=== PATIENT | female | born 1945 | race Caucasian/White ===

== ENCOUNTER 2017-02-04 15:20 | Inpatient (IN) | payer OTHER ==
[~2017-02-04] VITALS: Ht 162.6 cm; Wt 77.1 kg
--- NOTE | ~2017-02-04 | OP ---
Record Of Operation [facility] [address] [place]. [address] NAME: LEEANNA HUITRON : 47 STATUS : ADM IN [facility]#: [id number] AGE: 71 ADM/REG DATE : 02/04/17 MR#: [id number] REPORT SERV DATE: 02/06/17 DICTATED BY: LAKSHMI RAMIREZ DATE: 02/06/17 REPORT STATUS : Draft TRANSCRIBED BY: MODL DATE: 02/06/17 DATE OF PROCEDURE: 02/05/2017 PREOPERATIVE DIAGNOSIS: Left femoral neck fracture per MRI. POSTOPERATIVE DIAGNOSIS: Left femoral neck fracture per MRI. PROCEDURE: Left femoral neck open reduction and internal fixation. 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 DESCRIPTION OF PROCEDURE: The patient was taken to the operating room and placed supine on the fracture table. The anesthetic was induced per the anesthesiologist. The patient was sterilely prepped and draped in the normal fashion. Local anesthetic of Marcaine and lidocaine was injected in the area of the surgery. Percutaneous guidewire was then placed, followed on AP and lateral views. This was followed by a small incision and a parallel pin guide used to place two other pins. This was followed by depth gauge, drilling near cortex, and then self-drilling and self-tapping screws were placed and tightened. They were checked on AP and lateral views. This gave excellent fixation. I carefully verified that there was no penetration of the femoral head. The guidewires were removed. The wound was irrigated, closed, and dressed sterilely. Patient was awakened and taken to postanesthesia care unit without incident. COMPLICATIONS: None. SPECIMENS: None. ESTIMATED BLOOD LOSS: About 10 mL. WTB/KARONL Kassie Ramirez M.D. / [id number] CC: Trent Carcamo TERRI L
[~2017-02-04 15:20] MED LIST: ALLEGRA; MEVACOR PO; NORV5 PO; PROZAC PO
[2017-02-04 17:09] LABS: BASOPHILS 0.1 %; BASOPHILS ABSOLUTE 0.01 10/3/uL (0.0-0.16); EOSINOPHILS 1.8 %; EOSINOPHILS ABSOLUTE 0.15 10/3/uL (0.0-0.53); HEMATOCRIT 41.2 % (36.0-48.0); HEMOGLOBIN 13.7 g/dL (12.0-16.0); IMMATURE GRANULOCYTES 0.2 %; IMMATURE GRANULOCYTES ABSOLUTE 0.02 10/3/uL (0.0-0.11); LYMPHOCYTES 16.8 %; LYMPHOCYTES ABSOLUTE 1.43 10/3/uL (0.67-4.30); MANUAL DIFF NO %; MEAN CORPUS HGB CONC 33.3 g/dL (32.0-36.0); MEAN CORPUSCULAR HEMOGLOB 29.9 pg (26.0-34.0); MEAN PLATELET VOLUME 10.2 fL (9.2-13.0); MONOCYTES 10.2 %; MONOCYTES ABSOLUTE 0.87 10/3/uL (0.21-1.20); NEUTROPHILS 70.9 %; NEUTROPHILS ABSOLUTE 6.04 10/3/uL (2.02-8.40); PLATELET COUNT 265 10/3/uL (150-400); RBC DISTRIBUTION WIDTH 13.5 % (12.0-16.0); RED CELL COUNT 4.58 10/6/uL (4.0-5.6); WHITE BLOOD CELLS 8.5 10/3/uL (4.5-10.5)
[2017-02-04 17:16] LABS: INTERNATIONAL NORMAL RATI 1.1 UNITS (-)
[2017-02-04] MEDS ORDERED: PROZAC40 MG PO (17:24)
[2017-02-04] MEDS ORDERED: NAP500 PO (17:24)
[2017-02-04] MEDS ORDERED: ZESTRIL20 MG PO (17:24)
[2017-02-04] MEDS ORDERED: MEVACOR40 MG PO (17:24)
[2017-02-04] MEDS ORDERED: NORV10 PO (17:24)
[2017-02-04 17:25] LABS: A/G RATIO 1.2 (0.7-1.9); ALBUMIN 4.3 G/DL (3.5-5.0); ALKALINE PHOSPHATASE 88 U/L (45-117); BUN (BLOOD UREA NITROGEN) 17 MG/DL (6-23); CALCIUM, SERUM 9.8 MG/DL (8.5-10.4); CHLORIDE, SERUM 103 MMOL/L (96-112); CO2 (CARBON DIOXIDE) 30 MMOL/L (24-34); CREATININE 0.87 MG/DL (0.55-1.02); GFR AFRICAN AMERICAN 78 ML/MIN (>=60); GFR NON AFRICAN AMERICAN 67 ML/MIN (>=60); GLOBULIN 3.5 G/DL (2.5-4.1); GLUCOSE, SERUM 91 MG/DL (60-99); POTASSIUM, SERUM 4.2 MMOL/L (3.5-5.3); SGPT(ALT) 27 U/L (5-65); SODIUM, SERUM 138 MMOL/L (135-148); TOTAL BILIRUBIN 0.3 MG/DL (0-1.2); TOTAL PROTEIN 7.8 G/DL (6.0-8.5)
[2017-02-04] MEDS ORDERED: VITAMIN D31000 UNIT PO (17:25)
[2017-02-04] MEDS ORDERED: OS500+D PO (17:25)
[2017-02-04] MEDS ORDERED: ADVIL PO (17:25)
[2017-02-04 17:26] LABS: SGOT(AST) 20 U/L (5-40)
[2017-02-06 05:15] LABS: HEMATOCRIT 37.9 % (36.0-48.0); HEMOGLOBIN 12.7 g/dL (12.0-16.0)
[2017-02-06 05:22] LABS: BUN (BLOOD UREA NITROGEN) 14 MG/DL (6-23); CALCIUM, SERUM 9.1 MG/DL (8.5-10.4); CHLORIDE, SERUM 104 MMOL/L (96-112); CO2 (CARBON DIOXIDE) 27 MMOL/L (24-34); CREATININE 0.82 MG/DL (0.55-1.02); GFR AFRICAN AMERICAN 84 ML/MIN (>=60); GFR NON AFRICAN AMERICAN 73 ML/MIN (>=60); POTASSIUM, SERUM 4.4 MMOL/L (3.5-5.3); SODIUM, SERUM 138 MMOL/L (135-148)
[2017-02-06 05:26] LABS: GLUCOSE, SERUM 133 MG/DL (60-99)
[2017-02-06 05:27] LABS: INTERNATIONAL NORMAL RATI 1.2 UNITS (-); PROTIME (NOT ORD) 14.7 SEC (12.0-14.5)
[2017-02-06] MEDS ORDERED: FLUCON150 PO (11:46)
[2017-02-06] MEDS ORDERED: C5 (11:46)
[2017-02-06] MEDS ORDERED: PCET PO (11:46)
== END 2017-02-06 13:10 | disposition home or self-care (01) | DRG 482 ==
LOC: ENRESERVDT → ENRESERV → ENRESERVTM → 3SO 15:59
PROVIDERS: Specialist
PROC: 0QS704Z Reposition Left Upper Femur with Internal Fixation Device, Open Approach (ICD-10-PCS; principal; 2017-02-05 14:15)
DX: S72.002A Fracture of unspecified part of neck of left femur, initial encounter for closed fracture (principal); E11.9 Type 2 diabetes mellitus without complications; I10 Essential (primary) hypertension; X58.XXXA Exposure to other specified factors, initial encounter; G47.33 Obstructive sleep apnea (adult) (pediatric); F32.9 Major depressive disorder, single episode, unspecified; E78.5 Hyperlipidemia, unspecified; Z79.899 Other long term (current) drug therapy; Z88.0 Allergy status to penicillin; Z88.2 Allergy status to sulfonamides
CPT/HCPCS: 71010; 76000; 80048; 80053; 85014; 85018; 85025; 85610; 93005; 97161-GP; 97165-GO; A9270-GY; C1713; C1769; J0690; J1170; J1885; J2250; J2270; J2405; J2795; J3010